=== PATIENT | female | born 1980 | race Caucasian/White ===

== ENCOUNTER 2024-10-20 09:00 | Emergency (ER) | payer BC ==
[~2024-10-20] VITALS: Ht 167.6 cm; Wt 71.7 kg
[2024-10-20] MEDS ORDERED: HYDROMORPHONE 1 MG/1 ML DISP.SYRIN ONE (09:41)
[2024-10-20] MEDS ORDERED: ONDANSETRON ODT 4 MG TAB.RAPDIS ONE (09:41)
[2024-10-20] MEDS: HYDROMORPHONE 1 MG/1 ML DISP.SYRIN IM ONE (09:43)
[2024-10-20] MEDS: ONDANSETRON ODT 4 MG TAB.RAPDIS SL ONE (09:44)
[2024-10-20 09:49] LABS: PLATELET COUNT (AUTO) 193 K/uL (179-408); RED BLOOD CELL COUNT(AUTO) 4.40 MIL/uL (3.63-4.92); RED CELL DISTRIBUTION WIDTH 13.9 % (12.3-17.7); WHITE BLOOD COUNT (AUTO) 4.1 K/uL (3.8-11.8)
[2024-10-20 10:03] LABS: ASPARTATE AMINOTRANSFERASE 6.0 U/L (15-37); CREATININE 0.6 mg/dL (0.6-1.3); SODIUM SERUM 139.0 mmol/L (136-145); TOTAL PROTEIN, SERUM 7.5 g/dL (6.4-8.2); UREA NITROGEN, BLOOD 14.0 mg/dL (7-18)
[2024-10-20 10:22] LABS: *BILIRUBIN,URIN NEGATIVE (NEGATIVE); *BLOOD, URINE 2+ (NEGATIVE); *CLARITY,URINE CLEAR (CLEAR); *COLOR,URINE LIGHT YELLOW (YELLOW); *KETONES,URINE NEGATIVE (NEGATIVE); *PROTEIN,URINE NEGATIVE (NEGATIVE); *UROBILINOGEN,URINE 0.2 E.U./dl (NORMAL); LEUKOCYTE ESTERASE ,URINE 1+ (NEGATIVE); NITRITE, URINE NEGATIVE (NEGATIVE); UGLUCOSE NEGATIVE (NEGATIVE)
[2024-10-20 10:33] LABS: SQUAMOUS EPITHELIAL CELL,UR MODERATE /HPF (NONE SEEN)
[2024-10-20 10:34] LABS: *URINE HCG, QUAL NEGATIVE (NEGATIVE)
[2024-10-20 12:00] VITALS: BP 107/60
[2024-10-20] MEDS ORDERED: ACET1TAB23 PO (12:09)
[2024-10-20 13:14] VITALS: BP 107/60; TEMP 98.2; O2SAT 99
[2024-10-22 16:07] LABS: *CHLAMYDIA NAA Negative (Negative); *GC NAA Negative (Negative); *TRIC.VAG. NAA Negative (Negative)
== END 2024-10-20 13:15 | disposition home or self-care (01) ==
LOC: ER 09:00
DX: N83.202 Unspecified ovarian cyst, left side (principal); N89.8 Other specified noninflammatory disorders of vagina; M79.652 Pain in left thigh; R10.2 Pelvic and perineal pain; R14.0 Abdominal distension (gaseous); M54.50 Low back pain, unspecified; Z87.39 Personal history of other diseases of the musculoskeletal system and connective tissue
CPT/HCPCS: 99285; 76856; 80076; 80048; 81001; 84703; 85025; 87086; 87210; 84702; 96372; 87491; J1171; 36415; A4606; A4663; Q0162